=== PATIENT | female | born 1995 | race Caucasian/White ===

== ENCOUNTER 2016-10-30 08:38 | Emergency (ER) | payer BC ==
[2016-10-30 08:53] VITALS: RESP 18
[2016-10-30] MEDS ORDERED: DIAZEPAM 5 MG TAB PO STA (09:11)
[2016-10-30] MEDS ORDERED: IBUPROFEN 600 MG TAB PO STA (09:11)
--- NOTE | 2016-10-30 09:19 | ED ---
General Adult HPI - General Chief complaint: Abdominal Pain Stated complaint: LEFT RIB PAIN Time Seen by Provider: 10/30/16 09:03 Source: patient, RN notes reviewed Mode of arrival: ambulatory Limitations: no limitations - History of Present Illness Initial comments: Patient 21-year-old female who presents emergency room today with a chief complaint of increased pain to the left side of the lower ribs. She does admit that she was using a slip and slide yesterday. Denies any specific injury or trauma at the time patient states woke up this morning approximately 2 hours ago having increased pain to the left lower ribs is worse with certain movements. She states she coughs or sneezes it is worse. Patient states not taken any pain medication for. She denies any other complaints or associated symptoms. Denies any difficulty breathing or shortness of breath. Patient denies any recent fever, chills, shortness of breath, chest pain, back pain, abdominal pain, nausea or vomiting, numbness or tingling, dysuria or hematuria, constipation or diarrhea, headaches or visual changes, or any other complaints. - Related Data Home Medications Medication Instructions Recorded Confirmed Dextroamphetamine/Amphetamine 10 mg PO BID 10/30/16 10/30/16 [Adderall Xr] Previous Rx's Medication Instructions Recorded Cyclobenzaprine [Flexeril] 10 mg PO TID #20 tab 10/30/16 Ibuprofen [Motrin] 600 mg PO Q6HR PRN #40 day 10/30/16 Allergies Allergy/AdvReac Type Severity Reaction Status Date / Time No Known Allergies Allergy Verified 10/30/16 09:10 Review of Systems ROS Statement: Those systems with pertinent positive or pertinent negative responses have been documented in the HPI. ROS Other: All systems not noted in ROS Statement are negative. Past Medical History Past Medical History: No Reported History History of Any Multi-Drug Resistant Organisms: None Reported Past Surgical History: No Surgical Hx Reported Past Anesthesia/Blood Transfusion Reactions: No Reported Reaction Past Psychological History: No Psychological Hx Reported Smoking Status: Current every day smoker Past Alcohol Use History: None Reported, Occasional Past Drug Use History: None Reported - Past Family History Father Family Medical History: Diabetes Mellitus, Hypertension Sister(s) Additional Family Medical History / Comment(s): Chromosomal translocation General Exam - General Exam Comments Initial Comments: General: The patient is awake and alert, in no distress, and does not appear acutely ill. Eye: Pupils are equal, round and reactive to light, extra-ocular movements are intact. No nystagmus. There is normal conjunctiva bilaterally. No signs of icterus. Ears, nose, mouth and throat: There are moist mucous membranes and no oral lesions. Neck: The neck is supple, there is no tenderness or JVD. Cardiovascular: There is a regular rate and rhythm. No murmur, rub or gallop is appreciated. Respiratory: Lungs are clear to auscultation, respirations are non-labored, breath sounds are equal. No wheezes, stridor, rales, or rhonchi. Gastrointestinal: Soft, non-distended, non-tender abdomen without masses or organomegaly noted. There is no rebound or guarding present. No CVA tenderness. Bowel sounds are unremarkable. Musculoskeletal: Normal ROM. Patient does have tenderness to the left lower ribs. No deformity. No bruising or ecchymosis. No swelling. Strength 5/5. Sensation intact. Pulses equal bilaterally 2+. Neurological: A&O x 3. CN II-XII intact, There are no obvious motor or sensory deficits. Coordination appears grossly intact. Speech is normal. Skin: Skin is warm and dry and no rashes or lesions are noted. Psychiatric: Cooperative, appropriate mood & affect, normal judgment. Limitations: no limitations Course Vital Signs 10/30/16 10/30/16 08:50 09:52 Temperature 97.9 F 97.7 F Pulse Rate 103 H 99 Respiratory 18 18 Rate Blood Pressure 118/83 123/77 O2 Sat by Pulse 97 98 Oximetry Medical Decision Making - Medical Decision Making Patient reexamined at this time shows no signs of distress. She was given ibuprofen and Valium here in the emergency room. She states she's feeling better. She is more relaxed. Able to move more freely without pain. Patient' s x-ray is negative for any acute abnormality. Results were discussed with patient. Advised patient most likely musculoskeletal in nature. Advised to use heat to the area and continue with anti-inflammatories and muscle relaxer. Advised that muscle relaxers make her drowsy that she should not drive with these. Advised return if any symptoms increase or worsen. - Lab Data Lab Results 10/30/16 Range/Units 08:53 Urine HCG, Qual Not Detected (Not Detectd) Disposition Clinical Impression: Muscle strain Disposition: HOME SELF-CARE Condition: Good Instructions: Muscle Strain (ED) Additional Instructions: Please use medication as discussed. Please follow-up with family doctor in the next 2 days of symptoms have not improved. Please return to emergency room if the symptoms increase or worsen or for any other concerns. Prescriptions: Cyclobenzaprine [Flexeril] 10 mg PO TID #20 tab Ibuprofen [Motrin] 600 mg PO Q6HR PRN #40 day PRN Reason: Pain Referrals: Bishop Boyer MD [Primary Care Provider] - 1-2 days Time of Disposition: 10:09
[2016-10-30 09:54] VITALS: BP 123/77; PULSE 99; TEMP 97.7
--- NOTE | 2016-10-30 10:01 | XR ---
EXAMINATION TYPE: XR chest 2V DATE OF EXAM: 10/30/2016 COMPARISON: None HISTORY: 21 year-old female left rib pain TECHNIQUE: PA and lateral views FINDINGS: The cardiomediastinal silhouette, aorta, and pulmonary vasculature are within normal limits. Lungs an d pleural spaces are clear. Gentle dextroconvex curvature the spine. IMPRESSION: No acute cardiopulmonary process. Dextroconvex curvature of the spine; correlate for underlying scoliosis versus positional curvature.
== END 2016-10-30 10:15 | disposition home or self-care (01) ==
LOC: EC 08:38
DX: S29.011A Strain of muscle and tendon of front wall of thorax, initial encounter (principal); R10.9 Unspecified abdominal pain; F17.200 Nicotine dependence, unspecified, uncomplicated; Z79.899 Other long term (current) drug therapy; X58.XXXA Exposure to other specified factors, initial encounter
CPT/HCPCS: 71020; 81025; 99284

== ENCOUNTER 2018-01-25 10:40 | Emergency (ER) | payer BC ==
[2018-01-25 10:46] VITALS: RESP 18; TEMP 98.4
--- NOTE | 2018-01-25 11:00 | ED ---
General Adult HPI - General Chief complaint: Chest Pain Stated complaint: chest pain, rt side Time Seen by Provider: 01/25/18 10:49 Source: patient, RN notes reviewed Mode of arrival: ambulatory Limitations: no limitations - History of Present Illness Initial comments: Patient 23-year-old female with no significant past medical history, presented to the emergency room today with a chief complaint of right-sided chest pain that starts 1 when she woke up. Patient does admit that is a sharp type pain located in the right side of the chest wall. She states to go to work. She states pain was getting worse. She states she does have physical job. She states is worse with certain movements. Patient's states that they did do an EKG and advised come here to the emergency room to have further evaluation. Patient admits that the pain is improving. She states she did not take them before. Patient does admit that she's had similar pain in the past. She states it happened approximately once a month and last for a day had a time. Patient denies any other complaints or symptoms. Denies any recent travel. Patient denies any recent fever, chills, back pain, abdominal pain, nausea or vomiting, numbness or tingling, headaches or visual changes, or any other complaints. - Related Data Previous Rx's Medication Instructions Recorded Ibuprofen [Motrin] 600 mg PO Q6HR PRN #20 day 01/25/18 Allergies Allergy/AdvReac Type Severity Reaction Status Date / Time No Known Allergies Allergy Verified 01/25/18 11:00 Review of Systems ROS Statement: Those systems with pertinent positive or pertinent negative responses have been documented in the HPI. ROS Other: All systems not noted in ROS Statement are negative. Past Medical History Past Medical History: No Reported History History of Any Multi-Drug Resistant Organisms: None Reported Past Surgical History: No Surgical Hx Reported Past Anesthesia/Blood Transfusion Reactions: No Reported Reaction Past Psychological History: No Psychological Hx Reported Smoking Status: Current every day smoker Past Alcohol Use History: Occasional Past Drug Use History: None Reported - Past Family History Father Family Medical History: Diabetes Mellitus, Hypertension Sister(s) Additional Family Medical History / Comment(s): Chromosomal translocation General Exam - General Exam Comments Initial Comments: General: The patient is awake and alert, in no distress, and does not appear acutely ill. Eye: Extra-ocular movements are intact. No nystagmus. There is normal conjunctiva bilaterally. No signs of icterus. Ears, nose, mouth and throat: There are moist mucous membranes and no oral lesions. Neck: The neck is supple, there is no tenderness or JVD. Cardiovascular: There is a regular rate and rhythm. No murmur, rub or gallop is appreciated. Pain reproduced on palpation to the right side of the chest wall. Respiratory: Lungs are clear to auscultation, respirations are non-labored, breath sounds are equal. No wheezes, stridor, rales, or rhonchi. Musculoskeletal: Normal ROM, no tenderness. Sensation intact. Strength 5/5. Pulses equal bilaterally 2+. Neurological: A&O x 3. CN II-XII intact, There are no obvious motor or sensory deficits. Coordination appears grossly intact. Speech is normal. Skin: Skin is warm and dry and no rashes or lesions are noted. Psychiatric: Cooperative, appropriate mood & affect, normal judgment. Limitations: no limitations Course Vital Signs 01/25/18 10:42 Temperature 98.4 F Pulse Rate 92 Respiratory 18 Rate Blood Pressure 112/68 O2 Sat by Pulse 100 Oximetry EKG Findings - EKG Comments: EKG Findings:: EKG performed at 1104: Shows normal sinus rhythm at 81 bpm. MS interval 144. QRS 88. QT/QTC 392/455. No acute ST changes. Compared to previous outpatient EKG performed earlier today no change. Medical Decision Making - Medical Decision Making Patient reexamined at this time shows no signs of distress is resting comfortable. Does admit that pain has continued to improve. Has not had anything for pain. Patient's pain is reproduced on palpation to the anterior chest wall and states that this occurred approximately once a month. She states it is worse with certain movements. Patient does admit to a physical job denies any injury. Patient's EKG shows no acute abnormality. X-ray reviewed as negative. Results were discussed with patient. Patient advised anti-inflammatories. Given a work note advised was due to follow-up family doctor over the next 2 days. Advised to return if symptoms increase or worsen. Disposition Clinical Impression: Chest wall pain Disposition: HOME SELF-CARE Condition: Good Instructions: Chest Pain (ED) Additional Instructions: Please use medication as discussed. Please follow-up with family doctor in the next 2 days. Please return to emergency room if the symptoms increase or worsen or for any other concerns. Prescriptions: Ibuprofen [Motrin] 600 mg PO Q6HR PRN #20 day PRN Reason: Pain Is patient prescribed a controlled substance at d/c from ED?: No Referrals: None,Stated [Primary Care Provider] - 1-2 days Tammy Potts MD [STAFF PHYSICIAN] - 1-2 days Time of Disposition: 12:00
--- NOTE | 2018-01-25 11:51 | XR ---
EXAMINATION TYPE: XR chest 2V DATE OF EXAM: 01/25/2018 COMPARISON: Prior chest x-ray 10/30/2016 HISTORY: Chest pain TECHNIQUE: Frontal and lateral views of the chest are obtained. FINDINGS: There is no focal air space opacity, pleural effusion, or pneumothorax seen. The cardiac silhouette size is within normal limits. The osseous structures are intact. IMPRESSION: No acute cardiopulmonary process.
[2018-01-25] MEDS ORDERED: IBUPROFEN 600 MG TAB PO STA (11:58)
[2018-01-25 12:18] VITALS: BP 113/65; PULSE 87
== END 2018-01-25 12:18 | disposition home or self-care (01) ==
LOC: EC 10:40
DX: R07.89 Other chest pain (principal); F17.200 Nicotine dependence, unspecified, uncomplicated
CPT/HCPCS: 71046; 93005; 99285

== ENCOUNTER 2020-01-12 06:12 | Emergency (ER) | payer BC, OTHER ==
[2020-01-12 06:19] VITALS: TEMP 98.4
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
--- NOTE | 2020-01-12 06:52 | CT ---
EXAM: CT Head Without Intravenous Contrast CLINICAL HISTORY: ITS.REASON CT Reason: head trauma, minor, normal mental status TECHNIQUE: Axial computed tomography images of the head/brain without intravenous contrast. CTDI is 50.97 mGy and DLP is 1302.9 mGy-cm. This CT exam was performed using one or more of the following dose reduction techniques: automated exposure control, adjustment of the mA and/or kV according to patient size, and/or use of iterative reconstruction technique. COMPARISON: No relevant prior studies available. FINDINGS: Brain: No hemorrhage or mass effect. Ventricles: No hydrocephalus. Bones/joints: Unremarkable. Soft tissues: Multiple focal tissue fall. Sinuses: Unremarkable. Mastoid air cells: Clear. IMPRESSION: No acute hemorrhage, hydrocephalus, or mass effect.
[2020-01-12] MEDS ORDERED: ACETAMINOPHEN TAB 500 MG TAB PO STA (07:05)
[2020-01-12] MEDS ORDERED: IBUPROFEN 600 MG TAB PO STA (07:06)
[2020-01-12 07:54] VITALS: BP 116/74; PULSE 95; RESP 18
== END 2020-01-12 07:53 | disposition home or self-care (01) ==
LOC: EC 06:12
DX: S00.83XA Contusion of other part of head, initial encounter (principal); F17.200 Nicotine dependence, unspecified, uncomplicated; Y08.89XA Assault by other specified means, initial encounter; Y93.89 Activity, other specified; Y92.511 Restaurant or cafe as the place of occurrence of the external cause
CPT/HCPCS: 70450; 99284

== ENCOUNTER → 2020-06-01 | Outpatient (CLI) | payer OTHER, BC ==
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
== END | disposition home or self-care (01) ==
LOC: RADXRYALE 15:52
PROVIDERS: ATTEND Physician Assistant Medical
DX: S69.92XA Unspecified injury of left wrist, hand and finger(s), initial encounter (principal); M79.642 Pain in left hand